=== PATIENT | female | born 1980 ===

== ENCOUNTER 2017-05-24 02:00 | Emergency (ER) | payer OTHER, MEDICAID ==
[2017-05-24 02:19] VITALS: BP 125/82; PULSE 69; RESP 16; TEMP 98.2; O2SAT 100
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
--- NOTE | 2017-05-24 11:33 | RAD ---
HISTORY: left upper back pain COMPARISON: No prior. TECHNIQUE: Chest PA and lateral FINDINGS: LUNGS: No active pulmonary disease. PLEURA: No significant pleural effusion identified. No pneumothorax apparent. CARDIOVASCULAR: Normal. OSSEOUS STRUCTURES: Gentle dextro convex curvature of the thoracolumbar spine. VISUALIZED UPPER ABDOMEN: Normal. OTHER FINDINGS: None. IMPRESSION: No active disease.
== END 2017-05-24 04:40 | disposition home or self-care (01) ==
LOC: H.ER 02:00
DX: S09.90XA Unspecified injury of head, initial encounter (principal); S16.1XXA Strain of muscle, fascia and tendon at neck level, initial encounter; V43.52XA Car driver injured in collision with other type car in traffic accident, initial encounter; Y92.410 Unspecified street and highway as the place of occurrence of the external cause; E04.1 Nontoxic single thyroid nodule